=== PATIENT | male | born 1970 | race American Indian/Alaskan Native ===

== ENCOUNTER 2016-12-05 12:37 | Outpatient (CLI) | payer OTHER ==
--- NOTE | 2016-12-05 13:56 | XRay Report ---
RIGHT ELBOW, 3 views: History: Elbow pain. The bony architecture is intact without evidence of fracture or dislocation. No significant soft tissue abnormality is seen. A moderate olecranon spur is noted. IMPRESSION: Olecranon spur.
--- NOTE | 2016-12-05 14:01 | XRay Report ---
XRAY BILATERAL KNEE THREE VIEWS EACH: 12/05/16 12:37:00 CLINICAL: Knee pain. FINDINGS: Right: No fracture or dislocation. Normal medial and lateral joint spaces. A small inferior patellofemoral osteophyte. No joint effusion. Normal soft tissues. Left: Small medial and lateral osteophytes with no joint space narrowing. Vacuum phenomenon in the medial joint space. A small inferior patellofemoral osteophyte. No joint effusion. No fracture or dislocation. Normal soft tissues. IMPRESSION: 1. Osteoarthritis of the left knee with greater involvement of the medial joint space. Vacuum phenomenon of the medial joint space is consistent with degeneration of the medial meniscus. Mild left patellofemoral joint osteoarthritis.2. Mild right patellofemoral joint osteoarthritis in otherwise normal right knee.
== END 2016-12-05 12:38 | disposition home or self-care (01) ==
LOC: SPVIMAG 12:37
PROVIDERS: ATTEND Orthopaedic Surgery
DX: M17.0 Bilateral primary osteoarthritis of knee (principal); M25.821 Other specified joint disorders, right elbow; M25.761 Osteophyte, right knee; M25.762 Osteophyte, left knee

== ENCOUNTER 2016-12-17 11:52 | Outpatient (CLI) | payer OTHER ==
--- NOTE | 2016-12-17 12:20 | XRay Report ---
RIGHT SHOULDER RADIOGRAPHS INDICATION: Right shoulder pain. COMPARISON: None similar. FINDINGS: Frontal and Y views of the right shoulder, 3 projections demonstrate normal humeral head contour, well positioned against the glenoid. Intact AC joint with slight degenerative spurring. Preserved scapular contour. Normal visualized soft tissues, right ribs and lung. CONCLUSION: No acute right shoulder radiographic abnormality, as described. Thank you for the opportunity to participate in this patient's care.
== END 2016-12-17 11:53 | disposition home or self-care (01) ==
LOC: SPVIMAG 11:52
PROVIDERS: ATTEND Orthopaedic Surgery
DX: M25.811 Other specified joint disorders, right shoulder (principal)